=== PATIENT | female | born 1950 | race Caucasian/White ===

== ENCOUNTER → 2016-12-31 | Outpatient (CLI) | payer OTHER ==
[~2016-12-31] MED LIST: ADVAIR 250-501 EACH INH; ADVAIR 2501 DISK W/D PO; CALCIMAR200 IU/ML INH; CALCITONIN-SAL3.7 ML; FLEXERIL PO; FLEXERIL10 MG PO; LASIX20 MG PO; LEVAQUIN750 MG PO; LEVOTHYROXINE50 MCG PO; LISINOPRIL-HCTZ1 T14 PO; MELOXICAM15 MG PO; MOBIC PO; NEURONTIN300 MG PO; SODIUM CHLORIDE1 GM PO; SYNTHROID PO; TIZANIDINE HCL4 M1 PO; ZESTORETIC PO
--- NOTE | ~2016-12-31 | MY29 ---
[facility] of [facility] RADIOLOGY TEXT RESULTS PATIENT: HEATHER LEVINE LOCATION: [facility] : 52 UNIT #: [id number] AGE: [address]: Daphnie Levine APRN SEX: F ORDER DR: [id number] [facility] [address] [place], [place] [address] [id number] O MR#: [id number] Acc #: [id number] NAME: HEATHER LEVINE : 1950 SEX: F STUDY DATE/TIME: 12/31/2016 9:47 UNIT: [facility] ROOM: STUDY DESCRIPTION: MY KRYS SCREENING W/ CAD BILAT Attending Physician: Daphnie Levine A.P.R.N. Referring Physician: Daphnie Levine A.P.R.N. Ordering Physician: Daphnie Levine A.P.R.N. Primary Care Physician: Daphnie Levine A.P.R.N. MEDICAL IMAGING REPORT This report is preliminary unless electronic signature is present EXAM Bilateral Digital Screening Mammogram with CAD INDICATION Breast cancer screening. 66-year-old asymptomatic female. No personal or family history of breast cancer. COMPARISON 12/30/2015, 11/26/2014, 10/09/2010, 11/12/2008 FINDINGS The breast tissue is heterogeneously dense, which could obscure detection of small masses. No suspicious findings are seen. IMPRESSION No mammographic evidence of malignancy. Annual screening mammography and clinical breast exam are recommended. Consider breast tomosynthesis given the patient's breast density. A result letter will be sent to the patient. Patients over the age of 40 are entered into a reminder system with target due date for the next mammogram. BIRADS: 1 Negative Dictated by... Jigar Martinez M.D. THIS IS AN ELECTRONICALLY VERIFIED REPORT Jigar Martinez M.D. at 01/03/2017 9:50 PM [facility] A Service of [facility] RADIOLOGY TEXT RESULTS PATIENT: HEATHER LEVINE LOCATION: [facility] : 52 UNIT #: [id number] AGE: [address]: Daphnie Levine APRN SEX: F ORDER DR: TD: 12/31/2016 15:24 JOB #: [id number] MEDICAL IMAGING REPORT Page 1 of 1 COPY
== END | disposition home or self-care (01) ==
LOC: CWCC 09:15
DX: Z12.31 Encounter for screening mammogram for malignant neoplasm of breast (principal)
CPT/HCPCS: G0202